=== PATIENT | female | born 1985 | race African-American/Black ===

== ENCOUNTER 2018-07-23 17:39 | Inpatient (IN) | payer OTHER ==
[2018-07-23 18:22] VITALS: BP 135/84; PULSE 70; TEMP 98.1; BMI 27.3
[2018-07-23] MEDS ORDERED: morphine CARPU-JECT 4 MG/1 ML DISP.SYRIN IVPUSH ONE (19:03)
[2018-07-23] MEDS ORDERED: ONDANSETRON 4 MG/2 ML VIAL IVPUSH ONE (19:18)
--- NOTE | 2018-07-23 19:18 | PDOC ---
History of Present Illness - General Chief Complaint: Vaginal Bleeding Stated Complaint: ABD PAIN Time Seen by Provider: 07/23/18 18:59 History Source: Patient, Old Records Exam Limitations: No Limitations - History of Present Illness Initial Comments: 07/23/18 19:15 The patient is a 33F with a PMH of protein C deficiency, stroke, AVN of R hip, DVT x 4, and PE (on eliquis) who presents to the ER with lower back and leg pain , with chest pain. The patient states that her lower back and leg pain are consistent with her prior pain crises but her chest pain is not. She has not taken her medication (hydroxyuria, eliquis) in 2 days due to vomiting, which she thinks is secondary to "a bug". She currently denies abdominal pain but admits to a positive home test, but she is unsure of why it is positive because she has a copper IUD. She states that she passed clots over the past week She also admits to chest pain which started yesterday and has worsened, which is retrosternal, and does not feel like her previous PE's. She denies fever, chills, dysuria, or diarrhea. Past History - Past Medical History Allergies/Adverse Reactions: Allergies Allergy/AdvReac Type Severity Reaction Status Date / Time Iodinated Contrast- Oral and Allergy Verified 07/23/18 18:12 IV Dye latex Allergy Verified 07/23/18 18:12 Penicillins Allergy Verified 07/23/18 18:12 Home Medications: Ambulatory Orders Apixaban [Eliquis -] 5 mg PO BID 07/23/18 Docusate Sodium [Colace] 100 mg PO BID 07/23/18 Fluticasone/Salmeterol [Advair 250-50 Diskus] 1 each IH BID 07/23/18 Folic Acid 1 mg PO DAILY 07/23/18 Hydroxyurea [Hydrea -] 500 mg PO DAILY 07/23/18 Ketorolac Tromethamine [Sprix] 1 each NS DAILY 07/23/18 Montelukast Sodium [Singulair] 10 mg PO DAILY 07/23/18 Promethazine HCl 25 mg PO QID PRN 07/23/18 Sennosides [Senna] 8.6 mg PO DAILY 07/23/18 Anemia: Yes (SICKLE CELL) CVA: Yes COPD: No Other medical history: PE, PROTEIN C - Suicide/Smoking/Psychosocial Hx Smoking History: Never smoked Have you smoked in the past 12 months: No Information on smoking cessation initiated: No Hx Alcohol Use: No Drug/Substance Use Hx: No Review of Systems - Review of Systems Able to Perform ROS?: Yes Comments:: 07/23/18 19:39 GENERAL/CONSTITUTIONAL: No fever or chills. No weakness. HEAD, EYES, EARS, NOSE AND THROAT: No change in vision. No ear pain or discharge. No sore throat. CARDIOVASCULAR: Positive for CP. No palpitations or lightheadedness. RESPIRATORY: Positive for SOB. No cough, wheezing, or hemoptysis. GASTROINTESTINAL: No nausea, vomiting, diarrhea, constipation, or abdominal pain. GENITOURINARY: No dysuria, frequency, hematuria, or change in urination. MUSCULOSKELETAL: Positive for leg and back pain. No neck or back pain. SKIN: No rash or lesions. NEUROLOGIC: No headache, numbness, tingling, focal weakness, loss of consciousness, or change in strength/sensation. ENDOCRINE: No increased thirst. No abnormal weight change. HEMATOLOGIC/LYMPHATIC: Positive for prior PE, DVT. ALLERGIC/IMMUNOLOGIC: No hives or skin allergy. Is the patient limited Spanish proficient: No *Physical Exam - Vital Signs Last Vital Signs Temp Pulse Resp BP Pulse Ox 98.1 F 70 22 H 135/84 100 07/23/18 18:08 07/23/18 18:08 07/23/18 18:08 07/23/18 18:08 07/23/18 18:08 - Physical Exam Comments: 07/23/18 19:41 GENERAL: Well developed, well nourished. Awake and alert. In moderate distress. HEENT: Normocephalic, atraumatic. Hearing grossly normal. Moist mucous membranes. PERRLA, EOMI. No conjunctival pallor. Sclera are non-icteric. NECK: Supple. Full ROM. No JVD. CARDIOVASCULAR: Regular rate and rhythm. No murmurs, rubs, or gallops. Distal pulses are 2+ and symmetric. PULMONARY: Mild respiratory distress. Diffusely decreased lung sounds in all lung g[place]. ABDOMINAL: Soft. Non-tender. Non-distended. No rebound or guarding. GENITOURINARY: No CVA tenderness bilaterally. MUSCULOSKELETAL: Normal range of motion at all joints. No bony deformities or tenderness. EXTREMITIES: No cyanosis. No clubbing. No edema. No calf tenderness or swelling. SKIN: Warm and dry. Normal capillary refill. No rashes. No jaundice. NEUROLOGICAL: Alert, awake, appropriate. Cranial nerves 2-12 grossly intact. Normal speech. Ataxic gait. PSYCHIATRIC: Cooperative. Good eye contact. Appropriate mood and affect. Moderate Sedation - Procedure Monitoring Vital Signs: Procedure Monitoring Vital Signs Temperature 98.1 F 07/23/18 18:08 Pulse Rate 70 07/23/18 18:08 Respiratory Rate 22 H 07/23/18 18:08 Blood Pressure 135/84 07/23/18 18:08 O2 Sat by Pulse Oximetry (%) 100 07/23/18 18:08 ED Treatment Course - LABORATORY CBC & Chemistry Diagram: 07/23/18 21:09 07/23/18 21:09 - RADIOLOGY Radiology Studies Ordered: Category Date Time Status CHEST PA & LAT [RAD] Stat Radiology 07/23/18 19:03 Ordered Medical Decision Making - Medical Decision Making 07/23/18 19:42 The patient is a 33F with a PMH of sickle cell disease, protein C deficiency, DVT's and PE's supposed to be on eliquis who has not taken her AC or hydroxyuria in 2 days. Will give pain medication and order labs with XR to r/o acute chest crisis. Pt also had a home which was positive, so serum is pending, concern for ectopic. Pt denies abdominal pain. 07/23/18 20:25 Pt states she feels better on reassessment. Pending labs. 07/23/18 20:45 Pt seems to be more uncomfortable on exam. Will give repeat dose of pain medications. Labs being drawn now. 07/24/18 00:41 Attending endorsed patient to Dr. Alcaraz for admission. *DC/Admit/Observation/Transfer Diagnosis at time of Disposition: Sickle cell crisis - Discharge Dispostion Condition at time of disposition: Guarded Decision to Admit order: Yes - Referrals Referrals: ON STAFF,NOT [Primary Care Provider] - - Patient Instructions - Post Discharge Activity
--- NOTE | 2018-07-23 19:23 | PDOC ---
Attending Attestation - HPI HPI: 07/23/18 20:02 The patient is a 33 year old female, with a significant past medical history of Sickle Cell, stroke, AVN of R hip, DVT (x4), and PE (on eliquis), who presents to the emergency department with, diffuse joint and chest pain. Patient endorses a heavier menses with large clots 4 days ago and a positive test. Patient has an IUD in place. She notes her pain is similar to her Sickle Cell crisis. She denies recent fevers, chills, headache or dizziness. She denies recent nausea, vomit, diarrhea or constipation. She denies recent dysuria, frequency, urgency or hematuria. She denies recent chest pain or shortness of breath. Allergies: Contrast, Latex, Penicillin - Physicial Exam PE: 07/23/18 20:02 Agree with resident exam. <Owen Navarro - Last Filed: 07/23/18 20:01> - Resident Resident Name: Alex Estrada - ED Attending Attestation I have performed the following: I have examined & evaluated the patient, The case was reviewed & discussed with the resident, I agree w/resident's findings & plan - Medical Decision Making 07/23/18 23:37 3-year-old female with arthralgias and chest pain with self-reported history of sickle cell disease and pulmonary embolism Labs were reviewed and surprisingly are negative for anemia or elevated reticulocyte count EKG shows a sinus bradycardia at 57 bpm with no acute ST elevations Rhythm strip shows a sinus rhythm at 60 bpm Patient given Dilaudid Benadryl and Phenergan in the emergency department with some relief Due to persistent pain patient will be admitted to medical service with the recommendation for further evaluation of sickle cell disease <Suyapa Segal - Last Filed: 07/23/18 23:40> Attestations - Attestations 07/23/18 20:03 Documentation prepared by Owen Navarro, acting as medical transcription radiology for Suyapa Segal DO. <Owen Navarro - Last Filed: 07/23/18 20:01>
[2018-07-23] MEDS ORDERED: PROMETHAZINE HCL 25 MG/1 ML VIAL IVPUSH ONE (19:32)
[2018-07-23] MEDS ORDERED: HYDROmorphone HCL CARPU-JECT 2 MG/1 ML DISP.SYRIN IVPUSH ONE ×2 (19:32→20:44)
[2018-07-23] MEDS ORDERED: PROMETHAZINE HCL 25 MG/1 ML VIAL ONE (19:38)
[2018-07-23] MEDS ORDERED: HYDROmorphone HCl 2 MG/ML VIAL ONE ×2 (19:38→20:50)
[2018-07-23 21:34] LABS: BASO % 1.4 % (0-2.0); EOS % 0.6 % (0-4.5); HEMATOCRIT 34.9 % (32.4-45.2); HEMOGLOBIN 11.6 GM/dL (10.7-15.3); LYMPH % 35.8 % (8-40); MCH 26.8 pg (25.7-33.7); MCHC 33.3 g/dl (32.0-36.0); MEAN CELL VOLUME 80.5 fl (80-96); MONO % 8.6 % (3.8-10.2); NEUT % 53.6 % (42.8-82.8); PLATELET COUNT 509 K/MM3 (134-434); RBC 4.34 M/mm3 (3.60-5.2); RDW 19.2 % (11.6-15.6); WHITE BLOOD COUNT 7.3 K/mm3 (4.0-10.0)
[2018-07-23 21:44] LABS: ALK PHOS 65 U/L (45-117); ANION GAP 6 MMOL/L (8-16); BILIRUBIN,TOTAL 0.4 mg/dL (0.2-1); BLOOD UREA NITROGEN 14 mg/dL (7-18); CALCIUM 9.7 mg/dL (8.5-10.1); CHLORIDE 110 mmol/L (98-107); CO2 25 mmol/L (21-32); CREATININE 0.9 mg/dL (0.55-1.3); GLUCOSE,RANDOM 86 mg/dL (74-106); POTASSIUM 4.3 mmol/L (3.5-5.1); SGOT/AST 11 U/L (15-37); SGPT/ALT 15 U/L (13-61); SODIUM 140 mmol/L (136-145); TOT PROT 7.5 g/dl (6.4-8.2)
[2018-07-23 21:48] LABS: INR 1.17 (0.83-1.09); PROTHROMBIN TIME (PATIENT) 13.8 SEC (9.7-13.0)
[2018-07-23] MEDS ORDERED: LACTATED RINGERS SOLUTION 1,000 ML/1,000 ML INFUS.BAG IV SCH (23:30)
[2018-07-24] MEDS ORDERED: ENOXAPARIN NA (PORCINE) 40 MG/0.4 ML DISP.SYRIN SQ ONE ×2 (01:00→02:07)
[2018-07-24] MEDS ORDERED: methylPREDNISolone NA SUCC 40 MG/1 ML VIAL IVPUSH ONE (01:03)
--- NOTE | 2018-07-24 01:16 | HP ---
CHIEF COMPLAINT: Pain, nausea, vomiting PCP: HISTORY OF PRESENT ILLNESS: The patient is a 33 yo f w/ PMH Protein c deficiency, stroke, AVN of the right hip, PE & DVT on Eliquis who comes into the ED c/o lower back and chest pain for the past 4 days. The patient states that she was diagnosed with Sickle HBO- [place] disease (variant of sickle cell disease) at and has been treated with exchange transfusions and for acute chest syndrome in the past. Her last crisis was in June of this year. She received an exchange transfusion this past May because her blood was "80% sickled". She has been receiving her care at [facility] in [place]. The patient endorses low back pain as well as chest pain. The patient describes the pain as dull and throbbing. She states that this pain sounds similar to her previous crisis episodes. Her chest pain, however, is not typical of her usual crises. This chest pain also does not feel like when she had her PE. The patient also endorses a positive test at home as well as vaginal bleeding for the past 1 week. The patient has a copper IUD for contraception. She has also experiencing nausea and vomiting for the past 2 days, during which she has been unable to take her hydroxychloroquine and Eliquis. Patient denies SOB but states that her breathing is limited due to pain. ER course was notable for: (1) Hb 11.6, Plt count 509 (2) Reticulocyte count 1.13 (3) Recent Travel: none PAST MEDICAL HISTORY: see HPI PAST SURGICAL HISTORY: Port placement april 2017 appendectomy Social History: Smoking: denies Alcohol: denies Drugs: denies Family History: Mother of sickle cell disease Father has sickle cell trait Allergies Iodinated Contrast- Oral and IV Dye Allergy (Verified 07/23/18 18:12) latex Allergy (Verified 07/23/18 18:12) Penicillins Allergy (Verified 07/23/18 18:12) HOME MEDICATIONS: Home Medications Medication Instructions Recorded Apixaban [Eliquis -] 5 mg PO BID 07/23/18 Docusate Sodium [Colace] 100 mg PO BID 07/23/18 Fluticasone/Salmeterol [Advair 1 each IH BID 07/23/18 250-50 Diskus] Folic Acid 1 mg PO DAILY 07/23/18 Hydroxyurea [Hydrea -] 500 mg PO DAILY 07/23/18 Ketorolac Tromethamine [Sprix] 1 each NS DAILY 07/23/18 Montelukast Sodium [Singulair] 10 mg PO DAILY 07/23/18 Promethazine HCl 25 mg PO QID PRN 07/23/18 Sennosides [Senna] 8.6 mg PO DAILY 07/23/18 REVIEW OF SYSTEMS CONSTITUTIONAL: Absent: fever, chills, diaphoresis, generalized weakness, malaise, loss of appetite, weight change HEENT: Absent: rhinorrhea, nasal congestion, throat pain, throat swelling, difficulty swallowing, mouth swelling, ear pain, eye pain, visual changes CARDIOVASCULAR: Absent: syncope, palpitations, irregular heart rate, lightheadedness, peripheral edema RESPIRATORY: Absent: cough, dyspnea with exertion, orthopnea, wheezing, stridor, hemoptysis GASTROINTESTINAL: Absent: abdominal pain, abdominal distension, nausea, vomiting, diarrhea, constipation, melena, hematochezia GENITOURINARY: Absent: dysuria, frequency, urgency, hesitancy, hematuria, flank pain, genital pain MUSCULOSKELETAL: Absent: myalgia, arthralgia, joint swelling, back pain, neck pain SKIN: Absent: rash, itching, pallor HEMATOLOGIC/IMMUNOLOGIC: Absent: easy bleeding, easy bruising, lymphadenopathy, frequent infections ENDOCRINE: Absent: unexplained weight gain, unexplained weight loss, heat intolerance, cold intolerance NEUROLOGIC: Absent: headache, focal weakness or paresthesias, dizziness, unsteady gait, seizure, mental status changes, bladder or bowel incontinence PSYCHIATRIC: Absent: anxiety, depression, suicidal or homicidal ideation, hallucinations. PHYSICAL EXAMINATION Vital Signs - 24 hr 07/23/18 18:08 Temperature 98.1 F Pulse Rate 70 Respiratory 22 H Rate Blood Pressure 135/84 O2 Sat by Pulse 100 Oximetry (%) GENERAL: Awake, alert, and fully oriented, in no acute distress. HEAD: Normal with no signs of trauma. EYES: Pupils equal, round and reactive to light, extraocular movements intact, sclera anicteric, conjunctiva clear. No lid lag. LUNGS: Breath sounds decreased on both sides likely 2/2 decreased effort 2/2 pain. No wheezes, and no crackles. No accessory muscle use. HEART: Regular rate and rhythm, normal S1 and S2 without murmur, rub or gallop. ABDOMEN: Soft, nontender, not distended, normoactive bowel sounds, no guarding, no rebound, no masses. No hepatomegaly or splenomegaly. LOWER EXTREMITIES: 2+ pulses, warm, well-perfused. No peripheral edema. Mild tenderness to palpation over both lower extremities and ankles. NEUROLOGICAL: Cranial nerves II-X intact. Normal speech. SKIN: Warm, dry, normal turgor, no rashes or lesions noted, normal capillary refill. Laboratory Results - last 24 hr 07/23/18 07/23/18 07/23/18 21:09 21:09 21:09 WBC 7.3 RBC 4.34 Hgb 11.6 Hct 34.9 MCV 80.5 MCH 26.8 MCHC 33.3 RDW 19.2 H Plt Count 509 H MPV 9.0 Absolute Neuts (auto) 3.9 Neutrophils % 53.6 Lymphocytes % 35.8 Monocytes % 8.6 Eosinophils % 0.6 Basophils % 1.4 Nucleated RBC % 0 Retic Count 1.13 PT with INR INR Sodium 140 Potassium 4.3 Chloride 110 H Carbon Dioxide 25 Anion Gap 6 L BUN 14 Creatinine 0.9 Creat Clearance w eGFR > 60 Random Glucose 86 Calcium 9.7 Total Bilirubin 0.4 AST 11 L ALT 15 Alkaline Phosphatase 65 Creatine Kinase 64 Troponin I < 0.02 Total Protein 7.5 Albumin 4.0 Serum , Qual 07/23/18 07/23/18 21:09 21:09 WBC RBC Hgb Hct MCV MCH MCHC RDW Plt Count MPV Absolute Neuts (auto) Neutrophils % Lymphocytes % Monocytes % Eosinophils % Basophils % Nucleated RBC % Retic Count PT with INR 13.80 H INR 1.17 H Sodium Potassium Chloride Carbon Dioxide Anion Gap BUN Creatinine Creat Clearance w eGFR Random Glucose Calcium Total Bilirubin AST ALT Alkaline Phosphatase Creatine Kinase Troponin I Total Protein Albumin Serum , Qual Negative ASSESSMENT/PLAN: The patient is a 33 yo f w/ PMH Sickle HBO [place] disease, Protein C deficiency, stroke, DVT/PE on eliquis who comes into the ED c/o a 4 day history of Back pain , chest pain and vaginal bleeding. #Chest pain and back pain possibly 2/2 sickle cell crisis vs pulmonary embolism -Patient's reticulocyte count is 1.13 and Hb WNL, making acute crisis less likely -Patient off Eliquis x2 days w/ chest pain concerning for PE -Will obtain CTA chest r/o PE (patient itchy w/ contrast dye; will premedicated w/ medrol and benadryl -Will obtain b/l LE dopplers -Will order lovenox 1.5 mg/kg (140mg) SQ once as patient still nauseous -will resume patient's home eliquis in AM -LR @ 100 -zofran Q6H PRN -Dilaudid 1mg q1h PRN -echo in am -heme onc consult -incentive spirometry -trend trop #Vaginal bleeding and positive pregancy test at home. -quantititive HCg here negative for -no episodes of bleeding in ED -monitor Hb #FEN -no fluids indicated -lytes WNL -regular diet #Prophy -being treated w/ lovenox #Dispo -admit tele Visit type - Emergency Visit Emergency Visit: Yes ED Registration Date: 07/24/18 Care time: The patient presented to the Emergency Department on the above date and was hospitalized for further evaluation of their emergent condition. - New Patient This patient is new to me today: Yes Date on this admission: 07/24/18 - Critical Care Critical Care patient: No
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
[2018-07-24] MEDS ORDERED: ENOXAPARIN NA (PORCINE) 100 MG/1 ML DISP.SYRIN SQ ONE (02:06)
[2018-07-24] MEDS ORDERED: methylPREDNISolone NA SUCC 40 MG/1 ML VIAL ONE (02:07)
[2018-07-24] MEDS ORDERED: HYDROmorphone *PCA* 10MG/50ML DISP.SYRIN PCA SCH (03:00)
[2018-07-24] MEDS ORDERED: ONDANSETRON 4 MG/2 ML VIAL IVPUSH PRN (03:14)
[2018-07-24] MEDS ORDERED: HYDROmorphone HCl 2 MG/ML VIAL ONE ×2 (03:32→05:03)
[2018-07-24] MEDS: HYDROmorphone HCl 2 MG/ML VIAL IVPUSH PRN ×2 (03:39→05:15)
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
--- NOTE | 2018-07-24 06:51 | HOSP ---
Subjective - Review of Symptoms Subjective: Was paged to bedside by nurse as patient wish to leave AMA. Patient states that her [facility] will not hold her bed, and she wishes to return there to secure her bed. Patient was made aware of the potential risks of leaving against medical advice including worsening of her pain, worsening of her clinical condition, worsening of her shortness of breath, as well as the potential for . Patient verbalized understanding of these risks and still wish to leave AMA. AMA release papers were signed and placed in the patient's paper chart. Physical Examination Vital Signs: Vital Signs Temperature 98.1 F 07/23/18 18:08 Pulse Rate 70 07/23/18 18:08 Respiratory Rate 22 H 07/23/18 18:08 Blood Pressure 135/84 07/23/18 18:08 O2 Sat by Pulse Oximetry (%) 100 07/23/18 18:08 Labs: CBC, BMP 07/23/18 21:09 07/23/18 21:09 Visit type - Emergency Visit Emergency Visit: Yes ED Registration Date: 07/24/18 Care time: The patient presented to the Emergency Department on the above date and was hospitalized for further evaluation of their emergent condition. - New Patient This patient is new to me today: Yes Date on this admission: 07/24/18 - Critical Care Critical Care patient: No
[2018-07-24 09:04] LABS: ALBUMIN 4.1 g/dl (3.4-5.0); ALK PHOS 67 U/L (45-117); ANION GAP 10 MMOL/L (8-16); BILIRUBIN,TOTAL 0.5 mg/dL (0.2-1); BLOOD UREA NITROGEN 14 mg/dL (7-18); CALCIUM 9.4 mg/dL (8.5-10.1); CHLORIDE 110 mmol/L (98-107); CO2 20 mmol/L (21-32); CREATININE 0.9 mg/dL (0.55-1.3); GLUCOSE,RANDOM 90 mg/dL (74-106); MAGNESIUM 2.5 mg/dL (1.8-2.4); PHOSPHOROUS 4.3 mg/dL (2.5-4.9); POTASSIUM 4.3 mmol/L (3.5-5.1); SGOT/AST 13 U/L (15-37); SGPT/ALT 14 U/L (13-61); SODIUM 140 mmol/L (136-145); TOT PROT 7.5 g/dl (6.4-8.2)
[2018-07-24 09:52] LABS: HEMATOCRIT 37.7 % (32.4-45.2); MCH 25.9 pg (25.7-33.7); MCHC 31.9 g/dl (32.0-36.0); MEAN CELL VOLUME 81.2 fl (80-96); MEAN PLT VOLUME 9.4 fl (7.5-11.1); PLATELET COUNT 466 K/MM3 (134-434); RBC 4.65 M/mm3 (3.60-5.2); RDW 19.7 % (11.6-15.6); WHITE BLOOD COUNT 6.9 K/mm3 (4.0-10.0)
[2018-07-24] MEDS ORDERED: SENNOSIDES 8.6MG TABLET (FP) PO SCH (10:00)
[2018-07-24] MEDS ORDERED: HYDROXYUREA 500 MG CAPSULE PO SCH (10:00)
[2018-07-24] MEDS ORDERED: BUDESONIDE/FORMETEROL FUMARATE 80/4.5 mcg INHALER IH SCH (10:00)
[2018-07-24] MEDS ORDERED: APIXABAN 5 MG TABLET PO SCH (10:00)
[2018-07-24] MEDS ORDERED: DOCUSATE SODIUM 100 MG CAPSULE (FP) PO SCH (10:00)
--- NOTE | 2018-07-24 16:44 | EKG ---
Test Reason : Blood Pressure : / mmHG Vent. Rate : 057 BPM Atrial Rate : 057 BPM P-R Int : 142 ms QRS Dur : 074 ms QT Int : 436 ms P-R-T Axes : 038 028 047 degrees QTc Int : 424 ms SINUS BRADYCARDIA OTHERWISE NORMAL ECG NO PREVIOUS ECGS AVAILABLE Confirmed by MAGALI VALENTE MD ([id number]) on 07/24/2018 4:43:53 PM Referred By: Confirmed By:MAGALI VALENTE MD
[2018-07-24] MEDS ORDERED: MONTELUKAST NA 10 MG TABLET PO SCH (22:00)
== END 2018-07-24 07:00 | disposition left against medical advice (07) | DRG 662 ==
LOC: JER 17:39 → JERBED 07-24 00:09
PROVIDERS: ADMIT Internal Medicine; ATTEND Internal Medicine
DX: D57.00 Hb-SS disease with crisis, unspecified (principal); R07.89 Other chest pain; D68.59 Other primary thrombophilia; N93.9 Abnormal uterine and vaginal bleeding, unspecified; Z86.711 Personal history of pulmonary embolism; Z86.718 Personal history of other venous thrombosis and embolism; Z69.11 Encounter for mental health services for victim of spousal or partner abuse
CPT/HCPCS: 36415; 71046-TC-FY; 80053; 82550; 83010; 83735; 84100; 84484; 84703; 85025; 85027; 85044; 85610; 86850; 86900; 86901; 87633; 93005; 93010; 99283-25